=== PATIENT | male | born 1995 | race Caucasian/White ===

== ENCOUNTER 2017-04-23 12:07 | Emergency (ER) | payer OTHER ==
[~2017-04-23] VITALS: Ht 182.9 cm; Wt 95.5 kg
[2017-04-23 12:15] VITALS: BP 133/88; PULSE 94; TEMP 99.4
== END 2017-04-23 12:57 | disposition home or self-care (01) ==
LOC: COL.ER 12:07
DX: S50.12XA Contusion of left forearm, initial encounter (principal); S00.83XA Contusion of other part of head, initial encounter; V03.90XA Pedestrian on foot injured in collision with car, pick-up truck or van, unspecified whether traffic or nontraffic accident, initial encounter